=== PATIENT | female | born 1970 ===

== ENCOUNTER 2018-01-26 05:53 | Inpatient (IN) | payer OTHER ==
[2018-01-26] MEDS ORDERED: Acetaminophen IV 1GM/100ML * 1,000 MG/100 ML VIAL IVPB ONE (06:00)
[2018-01-26] MEDS ORDERED: Sodium Citrate/Citric Acid* 15 ML UDC PO ONE (06:00)
[2018-01-26] MEDS ORDERED: Dexamethasone IV* 4 MG/ML 1 ML (4 MG) IV SLOW PU ONE (06:00)
[2018-01-26] MEDS ORDERED: Buffered Lidocaine 0.9% SYRIN* 5 ML/SYR SYRINGE INTRADERM ONE (06:00)
[2018-01-26] MEDS ORDERED: Sodium Citrate/Citric Acid* 15 ML UDC ONE (06:02)
[2018-01-26] MEDS ORDERED: Dexamethasone IV* 4 MG/ML 1 ML (4 MG) ONE (06:02)
[2018-01-26] MEDS ORDERED: ceFAZolin 2 GM PREMIX (*) 2 GM/50 ML BAG IVPB ONE (06:02)
[2018-01-26] MEDS ORDERED: Acetaminophen IV 1GM/100ML * 100 ML ONE (06:04)
[2018-01-26] MEDS ORDERED: Bupivacaine 0.5% SDV PF* 30ML VIAL ONE (07:01)
[2018-01-26] MEDS ORDERED: Lidocain 1% EPI 1:100,000 * 30 ML MDV ONE (07:01)
[2018-01-26] MEDS ORDERED: fentaNYL* 50 MCG/ML 2 ML VIAL (100 MCG VIAL) ONE (07:09)
[2018-01-26] MEDS ORDERED: Propofol* 500 MG/50 ML BTL ONE (07:09)
[2018-01-26] MEDS ORDERED: Lidocaine 2% PF * 5 ML VIAL ONE (07:09)
[2018-01-26] MEDS ORDERED: Midazolam* 1 MG/ML 5 ML VIAL (5 MG) ONE (07:09)
[2018-01-26] MEDS ORDERED: Bupivacaine 0.5% PF 10 ML VIAL INJ ONE (07:15)
[2018-01-26] MEDS ORDERED: Morphine PF AMP (0.5MG/ML)* 5 MG/10 ML AMP ONE (07:15)
[2018-01-26] MEDS ORDERED: Naloxone* 0.4 MG/ML 1 ML VIAL IV PRN ×2 (08:27→08:29)
[2018-01-26] MEDS ORDERED: Ondansetron INJ* 2 MG/ML VIAL IV PRN ×3 (08:27→23:45)
[2018-01-26] MEDS ORDERED: oxyCODONE TAB* 5 MG TAB PO PRN ×2 (08:27→08:29)
[2018-01-26] MEDS ORDERED: Nalbuphine* 20 MG/ML 1 ML VIAL IV PRN ×3 (08:27→08:29)
[2018-01-26] MEDS ORDERED: diPHENhydraMINE IV* 50 MG/ML 1 ml VIAL (BENADRYL) IV PRN ×3 (08:27→23:45)
[2018-01-26] MEDS ORDERED: Ketorolac INJ* 30 MG/ML 1 ML VIAL IV PRN (08:27)
[2018-01-26] MEDS ORDERED: Acetaminophen TAB* 325 MG PO PRN ×2 (08:27→23:45)
[2018-01-26] MEDS ORDERED: Scopolamine 1.5 mg* PATCH TRANSDERM PRN (08:27)
[2018-01-26] MEDS ORDERED: HYDROmorphone INJ* 1 MG/ML CARPUJECT SYRINGE IV PRN (08:29)
[2018-01-26] MEDS ORDERED: oxyCODONE/Acetamin 5/325 MG* TAB PO PRN ×2 (08:29→23:45)
[2018-01-26] MEDS ORDERED: fentaNYL* 50 MCG/ML 2 ML VIAL (100 MCG VIAL) IV PRN (08:29)
[2018-01-26] MEDS ORDERED: Ketorolac INJ* 30 MG/ML 1 ML VIAL ONE (08:34)
[2018-01-26] MEDS ORDERED: Famotidine IV* 10 MG/ML 2 ML (20 mg) ONE (08:34)
[2018-01-26] MEDS ORDERED: Ondansetron ODT TAB* 4 MG ONE (08:34)
[2018-01-26] MEDS ORDERED: EPHEDrine (Pressors)* 50 MG/ML VIAL IV PUSH PRN (09:04)
[2018-01-26] MEDS ORDERED: Cyclobenzaprine TAB* 10 MG PO PRN (09:42)
[2018-01-26] MEDS ORDERED: Magnesium Hydroxide LIQ* 30 ML UDC PO PRN (09:42)
[2018-01-26] MEDS ORDERED: Morphine VIAL* 4 MG/ML VIAL (1 ml vial) IV PRN (09:42)
[2018-01-26] MEDS ORDERED: Bisacodyl SUPP* 10 MG SUPP PR PRN (09:42)
[2018-01-26] MEDS ORDERED: Ropivacaine 0.2% EPIDURAL* 200 MG/100 ML BAG EPIDURAL ONE (09:45)
[2018-01-26] MEDS ORDERED: Ropivacaine 0.2% EPIDURAL* 200 MG/100 ML BAG EPIDURAL SCH (10:00)
--- NOTE | 2018-01-26 11:31 | RAD ---
INDICATION: Right total knee replacement COMPARISON: None TECHNIQUE: Portable AP and crosstable lateral images were obtained. FINDINGS: There is right knee arthroplasty. The prosthetic components appear well seated. There are anterior skin mitchell. There is no overlying cooling jacket. IMPRESSION: RECENT RIGHT KNEE ARTHROPLASTY. THE PROSTHESIS APPEARS NORMALLY SEATED
--- NOTE | 2018-01-26 12:05 | OP ---
DATE OF OPERATION: 01/26/18 - ROOM #341 DATE OF : 68 SURGEON: Tony Whiteside MD HOTEL OPERATION MANAGER: Kunal Elizalde RPA PRE-OP DIAGNOSIS: Osteoarthritis, right knee. POST-OP DIAGNOSIS: Osteoarthritis, right knee. OPERATIVE PROCEDURE: Right total knee arthroplasty. ANESTHESIA: Spinal sedation. ESTIMATED BLOOD LOSS: Less than 50 cc. COMPLICATIONS: None. HARDWARE: Jazzmine Persona #5 femur, D tibia, 10-mm polyethylene, 32-mm all- polyethylene patellar button. SUMMARY: Ms. Hernandes is a 47-year-old female who has had continued troubles with right knee pain. She had initially undergone knee arthroscopy surgery with Dr. Keith and still had pain. She had been treated conservatively with anti-inflammatories, injections and had been sent for a genicular block which previously had worked well for her. This last time however, a repeat block as well as injections did not give her the relief and she had significant troubles with right knee pain. It could be seen she had a very specific valgus deformity by x-ray where she was [id number] with spurring in all three compartments. I discussed with her that a total knee arthroplasty should work well to decrease her pain and improve her function. Risks of surgery such as infection, scar formation, stiffness, DVT, pulmonary embolism, hardware failure , peroneal nerve injury as well as continued pain were some of the risks discussed. She had been declared medically optimized and wished to proceed. DESCRIPTION OF PROCEDURE: The patient was brought to the OR and spinal anesthesia was introduced. Rodriguez catheter was placed. Tourniquet was placed over the proximal right thigh and was used during the case. Total tourniquet time would be approximately 60 minutes. Right knee was prepped and then draped. Esmarch was used to exsanguinate the leg and the tourniquet was raised. Skin over the incisional area was infiltrated using 0.25% Marcaine with lidocaine with epinephrine. Approximately 10 cc will be used in the incision line, 20 cc will be used on the posterior capsule and 10 cc will be used in the gutters. Incision was made, carried down through the skin and subcutaneous fat. Small bleeders encountered were ligated using electrocautery. Extensor mechanism was exposed and a sharp parapatellar arthrotomy was made. Quite a bit of clear yellowish joint fluid was encountered. Fat pad was sharply excised and the soft tissues were sharply elevated from the medial side of the tibia. Patella measured 22 mm in thickness , and a nice 10-mm cut was taken. Patella was then easily subluxated laterally and the knee was flexed up. Step drill was used to open the femoral canal and the intramedullary guide was placed. Guide was adjusted until it was parallel with the epicondyles and was actually parallel with the posterior condyles as well. Distal femoral cutting guide was then pinned into place and the intramedullary guide was removed. This had been set at 2 degrees and to resect 2 mm and I wanted to take more from the medial side and almost nothing from the lateral side. The cut appeared to do that and I thought that we had a nice cut. Femur was sized and the 5 sat nicely. Holes were drilled and cutting block was placed. Running through the superior hole, I came out on the top side of the femoral cortex and it appeared I would not notch the cortex. Anterior and posterior femoral cuts followed by the chamfer cuts were taken. Attention was turned to the tibia. Step drill was used to open the tibial canal , intramedullary guide was placed. Outrigger was assembled and adjusted until it appeared it would take 2 mm from the worn lateral side. Cutting guide was then pinned into place and the proximal tibial cut was taken. A 10-mm spacer block was placed and it could be seen where she was still a little bit tight on that lateral side. In flexion, she was loose and I was pleased with the overall cut, just a little bit more bone approximately 1 mm or so was taken from the lateral side and then leveled out as I came towards the medial side. With the 10 block, she sat very nicely out into full extension and flexed nicely. Tibia was sized and a D sat very nicely. D was pinned into place. Proximal tibia was drilled and then punched. Attention was returned to the femur. Cutting block was replaced and chamfer cuts were recut. Trial was placed and the notch cut was finished using the notch cut finishing guide and the peg holes were drilled. She was trialed with a 10 and came out nicely into full extension, flexed easily and even without a prosthesis, the patellar tracking was perfect. Patella was sized and she sat nicely for a 32. Holes were drilled and trial was snapped into place. She had the same wonderful motion and stability. Trial instrumentation was removed, the knee was copiously pulse lavaged. Cement was being prepared. Tibia followed by femur and patella were all cemented into place. Excess cement was removed and the cement was allowed to harden. Once the cement hardened, the knee was again searched for excess cement and a few small pieces were found. Knee was again copiously pulse lavaged. She was again trialed with the 10. She had the same wonderful motion and stability. A 10-polyethylene was then snapped into place. Knee was again copiously pulse lavaged and parapatellar arthrotomy was repaired using interrupted #1 Vicryl sutures. Tourniquet was let down and no significant bleeding was encountered. Motion was good and none of the stitches popped. Subcutaneous tissues were reapproximated using 2-0 Vicryl. Skin was closed using mitchell. Sterile dressing and a Cryo/Cuff were applied in the OR. The patient was then awakened, stable on transfer to the recovery room. [id number]/[facility] #: [id number] VAL
[2018-01-26] MEDS: Heparin VIAL(*) 5000 UNITS/ML VIAL (FIVE THOUSAND) SUBCUT SCH ×2 (15:53→23:12)
[2018-01-26] MEDS: ceFAZolin 1 GM in Dextrose (*) 1 GM/50 ML BAG IVPB SCH ×2 (15:53→23:24)
[2018-01-26] MEDS ORDERED: Dextrose 50% Syringe 50 ML* 25 GM/50 ML SYRINGE IV PUSH PRN (16:43)
[2018-01-26] MEDS ORDERED: Nicotine Inhaler* 10 MG AMP INH PRN (16:44)
[2018-01-26] MEDS ORDERED: Mouth Piece, Nicotine* 1 EACH CARTRIDGE INH PRN (16:44)
[2018-01-26] MEDS: oxyCODONE/Acetamin 5/325 MG* TAB PO PRN ×2 (18:43→23:13)
[2018-01-26] MEDS: DULoxetine DR CAP* 30 MG CAP.DR PO SCH (20:48)
[2018-01-26] MEDS: Docusate CAP* 100 MG PO SCH (20:48)
[2018-01-26] MEDS: Pregabalin CAP(*) 100 MG PO SCH (20:48)
[2018-01-26] MEDS: Magnesium Hydroxide LIQ* 30 ML UDC PO SCH (20:48)
--- NOTE | 2018-01-26 21:32 | CONS ---
CC: Dr. Tony Whiteside * CONSULTATION REPORT: DATE OF CONSULT: 01/26/18 CONSULTING PROVIDER: Dr. Tony Whiteside. MY ATTENDING WHILE IN THE HOSPITAL: Dr. Omayra Baron.* (DICTATED BY SONNY BALDERAS) REASON FOR CONSULTATION: Co-management of comorbid medical conditions. HISTORY OF PRESENT ILLNESS: Ms. Hernandes is a 47-year-old female with past medical history significant for diabetes mellitus type 2, hypertension, hyperlipidemia, neuropathy, who is status post right total knee replacement on 01/26/18. The patient had estimated blood loss of less than 50 mL intraoperatively. The patient had sedation and a failed spinal nerve block. The patient is feeling well except for being unable to feel her right leg and foot, but she retains range of motion. The patient states that she has neuropathy in that foot at baseline, but this is much worse and not present on her other foot, and is present over her whole foot, not in one area, one nerve distribution. The patient complained no other pain except for a sore back, which is chronic for her. The patient has a good appetite. No nausea, vomiting , chest pain, shortness of breath, dizziness, abdominal pain or other pain. The patient's recent hemoglobin A1c was 6.2. The patient had elevated glucose on her preoperative laboratory testing as well as low albumin. No other significant laboratory abnormalities. The patient has no other recent illnesses. No new diagnosis. The patient has recently intentionally lost approximately 75 pounds. PAST MEDICAL HISTORY: Diabetes mellitus type 2, diet controlled; hypertension, diet controlled; degenerative disk disease; and neuropathy. PAST SURGICAL HISTORY: Right knee arthroscopy in 2006, uterine ablation in 2007 , nerve ablation of the right knee in 2016, and nerve ablation of left knee in 2018. MEDICATIONS: 1. Lyrica 200 mg p.o. 4 times a day. 2. Hydrocodone 7.5/325 q.6 hours as needed for pain. 3. Cymbalta 30 mg p.o. nightly. ALLERGIES: None. FAMILY HISTORY: The patient's mother is alive, has COPD and hypertension. The patient's father is , had quadruple bypass, hypertension, hyperlipidemia , renal cancer, CHF, and a head and neck tumor. The patient's sister has epilepsy. The patient has 3 daughters and 1 son, all of whom are alive and healthy. The patient also has one brother, who is alive and healthy. SOCIAL HISTORY: The patient is a smoker, smokes a pack a day, but she is tapered this down recently. She has smoked for the majority of her adult life. The patient has tried to quit several times unsuccessfully. The patient now released pharmacological aid. The patient does not use or abuse alcohol. The patient denies any illicit drug use. PHYSICAL EXAM: General: The patient is a 47-year-old female, who appears stated age and is sitting comfortably in bed, in no acute distress. Vital Signs : At time of evaluation, temperature 97.9, pulse rate 83, respiratory rate 18, oxygen saturation 93% on room air, blood pressure 106/62. HEENT: Head: Normocephalic, atraumatic. Sclerae anicteric. No conjunctival injection. Nasal mucosa moist. Oral mucosa moist. No pharyngeal erythema, discharge or exudate. Neck: Supple, nontender. No lymphadenopathy. No carotid bruit auscultated. No JVD. Cardiac: Regular rate and rhythm. No clicks, murmurs, gallops or rubs. Pulses are 2+ in the bilateral dorsalis pedis, posterior tibialis, and radial areas. Respiratory: Clear to auscultation bilaterally. No wheezes, rales or rhonchi. Good air exchange bilaterally. Abdomen: Soft, nontender, nondistended. Bowel sounds present and normoactive in all 4 quadrants. No hepatosplenomegaly. No abdominal bruits auscultated. Genitourinary: No suprapubic or CVA tenderness. Skin: Clean, dry, and intact. Right knee covered with bulky dressing. No other rashes. Neuro: Cranial nerves II through XII intact. No focal deficits except for persistent numbness in right lower extremity and decreased sensation to light touch on the toes of the left foot. Range of motion and strength are preserved bilaterally. Psychiatric: Pleasant and cooperative. DIAGNOSTIC STUDIES/LAB DATA: Preoperatively, white blood cell count is 10.1, hemoglobin 13.8, hematocrit 41, platelet count 194. INR 0.93, APTT 27.4. Sodium 139, potassium 3.8, chloride 103, carbon dioxide 28, anion gap 8, BUN 9, creatinine 0.58, glucose 104, hemoglobin A1c 6.2, calcium 8.8. Bilirubin 0.6, AST 9, ALT 11, alkaline phosphatase 33, total protein 6.6, albumin 4.1, globulin 2.5, TSH 0.99. ASSESSMENT AND PLAN: Ms. Hernandes is a 47-year-old female with past medical history significant for diabetes mellitus and hypertension, which are diet controlled as well as idiopathic neuropathy and osteoarthritis, who is status post right total knee replacement and is doing well. 1. Postsurgical state management per Orthopedics. Monitor hemoglobin and hematocrit as well as platelet count. Pain control per Ortho. Bowel meds per Ortho. The patient is not nauseous. The patient has a good appetite and antiemetics as needed. Physical therapy and occupational therapy. 2. Diabetes mellitus type 2. The patient is diet controlled at home. The patient's hemoglobin A1c was most recently 6.2. The patient will be started for a tight glucose control postoperatively. The patient will be started on fingersticks and sliding scale insulin a.c. The patient takes no medications at home. 3. Hypertension. This has been controlled after the patient lost a large amount of weight. The patient is currently borderline hypotensive. We will continue fluids and monitor closely. 4. Neuropathy. Continue Lyrica and Cymbalta. Continue workup outpatient with [facility] neurologist. 5. Fluids, electrolytes, and nutrition. Fluids at 100 mL an hour. The patient will have a consistent carbohydrate diet. 6. Tobacco use disorder. The patient will have nicotine inhaler as needed. 7. DVT prophylaxis. Heparin to Coumadin per Orthopedics. Monitor INR daily. 8. Disposition. The patient is admitted inpatient, disposition per Primary Team. TIME SPENT: Approximately 60 minutes was spent on this consultation, 30 of which was spent [id number] with the patient obtaining history and physical and discussing the treatment plan. This plan was discussed with my attending, Dr. Omayra Baron, and she is in agreement. SONNY BALDERAS [id number]/[facility] #: [id number] MTDD
[2018-01-27] MEDS: oxyCODONE/Acetamin 5/325 MG* TAB PO PRN ×5 (03:45→23:32)
[2018-01-27] MEDS: Heparin VIAL(*) 5000 UNITS/ML VIAL (FIVE THOUSAND) SUBCUT SCH ×3 (05:41→21:57)
[2018-01-27 06:26] LABS: Hematocrit 30 % (35-47); Hemoglobin 10.2 g/dl (12.0-16.0); Mean Platelet Volume 8.4 um3 (7.4-10.4); Platelet Count 194 10^3/ul (150-450)
[2018-01-27 06:43] LABS: EGFR Non-African American 95.6 (>60)
[2018-01-27] MEDS: oxyCODONE TAB* 5 MG TAB PO PRN ×4 (07:00→20:29)
[2018-01-27] MEDS: Insulin LISPRO* 1 UNITS UNIT SUBCUT SCH ×3 (08:20→17:31)
[2018-01-27] MEDS: Pregabalin CAP(*) 100 MG PO SCH ×3 (08:23→20:29)
[2018-01-27] MEDS: Docusate CAP* 100 MG PO SCH ×2 (08:23→20:28)
[2018-01-27] MEDS: ceFAZolin 1 GM in Dextrose (*) 1 GM/50 ML BAG IVPB SCH (08:23)
[2018-01-27] MEDS: Vitamin THERAPEUTIC TAB PO SCH (08:23)
[2018-01-27] MEDS: Magnesium Hydroxide LIQ* 30 ML UDC PO SCH (08:29)
--- NOTE | 2018-01-27 08:44 | PN ---
Progress Note - Progress Note Date of Service: 01/27/18 SOAP: Subjective: [Pt is a 47 y/o female who underwent a RTKA on 01/26/2018. She states pain is under control and complains of some mild bruising that is present above the dressings. She was seen sitting up in her chair today and eating breakfast. She denies any numbness and tingling, no chest pain or SOB. ] Objective: [General: Pt is awake, alert and oriented. NAD MSK, RLE: Dressing is clean and intact. Dressing is wet on the front portion consistent with the cryotherapy cuff area. The dressing was therefore changed today. Telfa was left over the incision and the gauze and abd pad was removed and replaced with new dry ones. There was moderate amount of dried blood on gauze and moderate blood on the abd pad. Pt is able to df/pf. Calf is nontender. NVI. ] Vital Signs Temp 98.1 F 01/27/18 03:52 Pulse 69 01/27/18 03:52 Resp 20 01/27/18 08:23 BP 121/56 01/27/18 03:52 Pulse Ox 99 01/27/18 03:52 Intake & Output 01/26/18 01/27/18 01/27/18 18:59 06:59 18:59 Intake Total 1658 1832 Output Total 625 525 Balance 1033 1307 Intake: IV Fluids 1350 642 LR 642 NS 100ML, Cefazolin 2G 50 lr 1300 IVPB 308 50 ABX - CEFAZOLIN 50 LR 308 Oral 1140 Output: Urine 0 Rodriguez 425 525 Estimated Blood Loss 200 Other: # Bowel Movements 01/27/18 Estimated Stool Amount Medium Assessment: [S/P RTKA on 01/26/2018] Plan: [-Continue with PT/OT - Continue with pain medication as needed - Dressing was changed today due to soaked guaze and abd pads. - Pt was encouraged to use the cryotherapy unit on and off for 20 minute intervals. She had been leaving it on constantly. - Hospitalists co-managing. ]
--- NOTE | 2018-01-27 14:15 | PN ---
Subjective Date of Service: 01/27/18 Interval History: Patient feeling good today. Pain 8/10 in leg after walking. Patient denies F/C, N/V, abdominal pain, diarrhea, CP, SOB, dysuria, dizziness, palpitations. Sensation is back to baseline in right foot. Patient had a small amount of hematuria. Family History: Unchanged from Admission Social History: Unchanged from Admission Past Medical History: Unchanged from Admission Objective Active Medications: Acetaminophen (Tylenol Tab*) 650 mg PO Q4H PRN PRN Reason: pain Stop: 01/27/18 23:44 Acetaminophen (Tylenol Tab*) 650 mg PO Q4H PRN PRN Reason: PAIN OR TEMPERATURE Bisacodyl (Dulcolax Supp*) 10 mg NC DAILY PRN PRN Reason: constipation Cyclobenzaprine HCl (Flexeril Tab*) 5 mg PO TID PRN PRN Reason: SPASMS Device (Nicotine Mouth Piece*) 1 each INH .USE WITH NICOTROL PRN PRN Reason: CRAVING Dextrose (D50w Syringe 50 Ml*) 12.5 gm IV PUSH .FOR FS < 60 - SS PRN PRN Reason: FS < 60 Diphenhydramine HCl (Benadryl Iv*) 25 mg IV Q6H PRN PRN Reason: itching Docusate Sodium (Colace Cap*) 100 mg PO BID [facility] Last Admin: 01/27/18 08:23 Dose: 100 mg Duloxetine HCl (Cymbalta Cap*) 30 mg PO BEDTIME [facility] Last Admin: 01/26/18 20:48 Dose: 30 mg Heparin Sodium (Porcine) (Heparin Vial(*)) 5,000 units SUBCUT Q8HR [facility] Last Admin: 01/27/18 05:41 Dose: 5,000 units Lactated Ringer's (Lactated Ringers 1000 Ml Bag*) 1,000 mls @ 100 mls/hr IV PER RATE [facility] Last Admin: 01/26/18 22:09 Dose: 100 mls/hr Insulin Human Lispro (Humalog*) 0 units SUBCUT AC [facility] PRN Reason: Protocol Last Admin: 01/27/18 11:27 Dose: Not Given Lactulose (Lactulose*) 30 ml PO Q6H PRN PRN Reason: constipation Magnesium Hydroxide (Milk Of Magnesia Liq*) 30 ml PO Q6H PRN PRN Reason: constipation Morphine Sulfate (Morphine Vial*) 2 mg IV Q2H PRN PRN Reason: PAIN Multivitamins (Theragran Tab*) 1 tab PO DAILY [facility] Last Admin: 01/27/18 08:23 Dose: 1 tab Nicotine (Nicotine Inhaler*) 10 mg INH Q2H PRN PRN Reason: CRAVING Ondansetron HCl (Zofran Inj*) 4 mg IV Q6H PRN PRN Reason: nausea Oxycodone HCl (Roxycodone Tab*) 10 mg PO Q4H PRN PRN Reason: PAIN Last Admin: 01/27/18 11:23 Dose: 10 mg Oxycodone/Acetaminophen (Percocet 5/325 Tab*) 2 tab PO Q4H PRN PRN Reason: PAIN Last Admin: 01/27/18 12:52 Dose: 2 tab Oxycodone/Acetaminophen (Percocet 5/325 Tab*) 1 tab PO Q4H PRN PRN Reason: PAIN Pharmacy Profile Note (Scopolamine Patch Remove*) 1 note PATCH OFF .AFTER 72 HOURS PRN PRN Reason: nausea Stop: 01/29/18 12:00 Pregabalin (Lyrica Cap(*)) 200 mg PO TID [facility] Last Admin: 01/27/18 08:23 Dose: 200 mg Vital Signs - 8 hr 01/27/18 01/27/18 01/27/18 06:16 07:00 07:35 Temperature 98.2 F Pulse Rate 68 Respiratory 16 17 18 Rate Blood Pressure 132/72 (mmHg) O2 Sat by Pulse 98 Oximetry 01/27/18 01/27/18 01/27/18 08:20 08:23 11:11 Temperature 97.8 F Pulse Rate 61 Respiratory 16 20 18 Rate Blood Pressure 116/55 (mmHg) O2 Sat by Pulse 97 97 Oximetry 01/27/18 01/27/18 01/27/18 11:23 11:34 12:52 Temperature Pulse Rate Respiratory 16 18 18 Rate Blood Pressure (mmHg) O2 Sat by Pulse Oximetry Oxygen Devices in Use Now: None Appearance: Patient is a 47yo female who appears stated age and is sitting in the chair in NAD. Eyes: No Scleral Icterus, PERRLA Ears/Nose/Mouth/Throat: NL Teeth, Lips, Gums, Clear Oropharnyx, Mucous Membranes Moist Neck: NL Appearance and Movements; NL JVP, Trachea Midline Respiratory: Symmetrical Chest Expansion and Respiratory Effort, Clear to Auscultation Cardiovascular: NL Sounds; No Murmurs; No JVD, RRR, No Edema Abdominal: NL Sounds; No Tenderness; No Distention, No Hepatosplenomegaly Lymphatic: No Cervical Adenopathy, No Auricular Adenopathy Extremities: No Edema, No Clubbing, Cyanosis Skin: No Nodules or Sclerosis, - - Right knee incision covered with dressing with a small amout of blood on the dressing. Neurological: Alert and Oriented x 3, NL Sensation, NL Muscle Strength and Tone , - - CN II-XII intact. Antalgic gait. Result Diagrams: 01/27/18 06:18 01/27/18 06:18 Assess/Plan/Problems-Billing Assessment: Patient is a 47yo female with a PMH for HTN, DM III, neuropathy who is S/P a RTKA and is doing well. - Patient Problems (1) Post-operative state Current Visit: Yes Status: Acute Code(s): Z98.890 - OTHER SPECIFIED POSTPROCEDURAL STATES SNOMED Code(s): 72498713 Comment: Managment per Ortho. H/H moderately decreased. Doing well with PT/OT. Moderate Pain control. Bowel regimen per primary team. (2) Diabetes Current Visit: Yes Status: Acute Code(s): E11.9 - TYPE 2 DIABETES MELLITUS WITHOUT COMPLICATIONS SNOMED Code(s): 79316360 Comment: Slightly elevated. SSI. Continue diet control at home. (3) Hypertension Current Visit: Yes Status: Acute Code(s): I10 - ESSENTIAL (PRIMARY) HYPERTENSION SNOMED Code(s): 51245305 Comment: Normotensive. No medications. (4) Neuropathy Current Visit: Yes Status: Acute Code(s): G62.9 - POLYNEUROPATHY, UNSPECIFIED SNOMED Code(s): 965669790 Comment: Continue Lyrica and Duloxetine. Well controlled. (5) Hematuria Current Visit: Yes Status: Acute Code(s): R31.9 - HEMATURIA, UNSPECIFIED SNOMED Code(s): 36339535 Comment: Slight. Likely due to araiza cath. (6) DVT prophylaxis Current Visit: Yes Status: Acute Code(s): ORS9874 - SNOMED Code(s): 737275423 Comment: Heparin to Coumadin per Ortho. (7) Full code status Current Visit: Yes Status: Acute Code(s): Z78.9 - OTHER SPECIFIED HEALTH STATUS SNOMED Code(s): 983359954 Status and Disposition: Inpatient. Disposition per Ortho.
[2018-01-27] MEDS ORDERED: Ketorolac INJ* 30 MG/ML 1 ML VIAL IV PUSH STA (17:10)
[2018-01-27] MEDS: Ketorolac INJ* 30 MG/ML 1 ML VIAL IV SCH ×2 (17:33→23:33)
[2018-01-27] MEDS ORDERED: Warfarin TAB(*) 10 MG PO ONE (18:00)
[2018-01-27] MEDS: DULoxetine DR CAP* 30 MG CAP.DR PO SCH (20:28)
[2018-01-28] MEDS: oxyCODONE TAB* 5 MG TAB PO PRN ×2 (03:10→13:15)
[2018-01-28] MEDS: Ketorolac INJ* 30 MG/ML 1 ML VIAL IV SCH ×2 (05:47→11:12)
[2018-01-28] MEDS: Heparin VIAL(*) 5000 UNITS/ML VIAL (FIVE THOUSAND) SUBCUT SCH ×2 (05:48→13:16)
[2018-01-28 06:33] LABS: Hematocrit 32 % (35-47); Platelet Count 215 10^3/ul (150-450)
[2018-01-28 06:39] LABS: INR 1.03 (0.77-1.02)
[2018-01-28] MEDS: Insulin LISPRO* 1 UNITS UNIT SUBCUT SCH ×2 (07:24→11:59)
[2018-01-28] MEDS: oxyCODONE/Acetamin 5/325 MG* TAB PO PRN (08:31)
[2018-01-28] MEDS: Docusate CAP* 100 MG PO SCH (08:31)
[2018-01-28] MEDS: Vitamin THERAPEUTIC TAB PO SCH (08:31)
[2018-01-28] MEDS: Pregabalin CAP(*) 100 MG PO SCH ×2 (08:54→13:14)
--- NOTE | 2018-01-28 11:53 | PN ---
Progress Note - Progress Note Date of Service: 01/28/18 SOAP: Subjective: Pt is a 47 y/o female who underwent a RTKA on 01/26/2018. She states pain is under control.. She was seen sitting up in her chair today and eating breakfast. She denies any numbness and tingling, no chest pain or SOB. ] Objective: [General: Pt is awake, alert and oriented. NAD MSK, RLE: Dressing is clean and intact. The dressing was changed today. Incision is clean, dry and intact. [place] are in place. No drainage or erythema present. There was trace amount of dried blood on gauze. Pt is able to df/pf. Calf is nontender. NVI. ] Vital Signs Temp 98.4 F 01/28/18 07:15 Pulse 67 01/28/18 07:15 Resp 20 01/28/18 11:19 BP 109/52 01/28/18 07:15 Pulse Ox 97 01/28/18 08:00 Intake & Output 01/27/18 01/28/18 01/28/18 18:59 06:59 18:59 Intake Total 2601 2240 960 Output Total 1500 1250 250 Balance 1101 990 710 Intake: IV Fluids 988 LR 988 IVPB 108 ABX - CEFAZOLIN 108 Oral 1505 2240 960 Output: Urine 1500 1250 250 Other: Date of Last Bowel 01/28/18 Movement # Bowel Movements 0 1 Estimated Stool Amount Small # Voids 1 Assessment: [S/P RTKA on 01/26/2018] Plan: [-Continue with PT/OT - Continue with pain medication as needed - Dressing was changed today - INR 1.03- 8mg of coumadin tonight - Possible DC today should PT go well this afternoon - Hospitalists co-managing. ]
[2018-01-28 12:26] VITALS: BP 117/62
[2018-01-29] MEDS ORDERED: Scopolamine PATCH Remove* 1 NOTE MISC PATCH OFF PRN (08:28)
--- NOTE | 2018-01-31 00:33 | DS ---
AMENDED REPORT NOW INCLUDES COSIGNER DESIGNATION - ESIGNED BEFORE ADJUSTMENT DISCHARGE SUMMARY: DATE OF ADMISSION: 01/26/18 DATE OF DISCHARGE: 01/28/18. PROVIDER: Dr. Tony Whiteside.* (DICTATED BY SONNY WOODARD) ADMITTING DIAGNOSIS: Right total knee arthroplasty. CONSULTATION: PT, OT and Hospitalist Medicine. HISTORY OF PRESENT ILLNESS: Ms. Hernandes is a 47-year-old female, who has end- stage osteoarthritis of the right knee. She has elected to undergo a right total knee arthroplasty with Dr. Tony Whiteside on 01/26/18. She failed conservative management. HOSPITAL COURSE: The patient was admitted to [facility] on 01/26/18 and underwent a right total knee arthroplasty with no complications. The patient recovered briefly in the postanesthesia care unit and was then transferred to the short stay surgical unit in stable condition. On postoperative day #1, the patient's H and H was 10.2 and 30. The dressing was clean, dry and intact. The right lower extremity was neurovascularly intact. She could demonstrate dorsiflexion and plantar flexion with good strength. The patient was able to get out of bed with physical therapy. Pain was controlled with oral medication. On postop day #2, the urinary catheter was discontinued and the patient was able to void without difficulty. Incision was found to be benign, minimal drainage, no erythema or warmth. The patient's H and H was 11.0 and 32 with an INR of 1.03 after 6 mg of Coumadin the night before. The pain was controlled again with oral pain medication. Throughout the hospital course, vital signs remained stable and patient was afebrile. DISCHARGE CONDITION: Good. DISCHARGE MEDICATIONS: 1. Percocet 5/325. 2. Coumadin 2 mg. HOME MEDICATIONS: 1. Hydrocodone/acetaminophen hold. 2. Ibuprofen. 3. Duloxetine cap. 4. Pregabalin. DISCHARGE INSTRUCTIONS: Weightbearing as tolerated. Wound care: Okay to shower on third postoperative day. No bathing, swimming, or submerging of the wound. Use gentle soap and pat dry. Cover with antibiotic ointment, gauze and Paulo wrap. Call orthopedic office for increased drainage, redness, increased pain or fever. Go to the ER with shortness of breath or chest pain. Diet: Regular diet. Increase fluids and fiber to prevent constipation. Continue to use stool softeners. Call the office if no bowel motion within 48 hours. Continue physical therapy and occupational therapy exercises as shown. Visiting home nurses to remove mitchell in 10 to 12 days and do wound check. Visiting home nurses to draw blood work, INR on Mondays and . Coumadin dosing: You have been given 2 mg tablets. Please joan the dosing instructions on your calendar as they are provided to you after INR blood draws. Dosin mg of Coumadin tonight. Recheck tomorrow. Pain control with Percocet 5/325 mg one to two tabs every 4 to 6 hours as needed for pain, maximum 10 tabs per day. Please note that Percocet contains Tylenol. Maximum daily dose of Tylenol is 4000 mg from all sources. Antibiotics required prior to any dental work. Follow up with Dr. Whiteside in within four weeks. Call for an appointment. SONNY WOODARD [id number]/[facility] #: [id number] VAL
== END 2018-01-28 13:25 | disposition home health service (06) | DRG 302 ==
LOC: AA 05:53 → SSU 11:41
PROVIDERS: ADMIT Orthopaedic Surgery; ATTEND Orthopaedic Surgery
PROC: 0SRC0J9 Replacement of Right Knee Joint with Synthetic Substitute, Cemented, Open Approach (ICD-10-PCS; principal; 2018-01-26 07:30)
DX: M17.11 Unilateral primary osteoarthritis, right knee (principal); F17.210 Nicotine dependence, cigarettes, uncomplicated; M21.061 Valgus deformity, not elsewhere classified, right knee; F31.9 Bipolar disorder, unspecified; I10 Essential (primary) hypertension; E11.42 Type 2 diabetes mellitus with diabetic polyneuropathy; G25.81 Restless legs syndrome; E78.5 Hyperlipidemia, unspecified; G89.29 Other chronic pain; R31.9 Hematuria, unspecified; I95.9 Hypotension, unspecified; Z91.09 Other allergy status, other than to drugs and biological substances; Z80.8 Family history of malignant neoplasm of other organs or systems; Z82.49 Family history of ischemic heart disease and other diseases of the circulatory system; Z80.51 Family history of malignant neoplasm of kidney; Z82.0 Family history of epilepsy and other diseases of the nervous system; Z82.5 Family history of asthma and other chronic lower respiratory diseases; Z79.01 Long term (current) use of anticoagulants
CPT/HCPCS: 36415; 62327; 80048; 85014; 85018; 85049; 85610; 88305; 88311; A9270-GY; C1776; J0690; J1100; J1644; J1885; J2250; J2270; J2704; J2795; J3010